=== PATIENT | male | born 1965 | race Caucasian/White ===

== ENCOUNTER → 2020-01-28 | Outpatient (CLI) | payer OTHER ==
[~2020-01-28] MED LIST: ASPIRIN325 PO; ATORVASTATIN CA10 MG PO; ATORVASTATIN CA40 MG PO; AUGMENTIN400 MG/53 PO; COZAAR 25 MG TA25 M1 PO; FIBER0.52 G1 PO; FISH OIL 1,0001 EAC8 PO; HYDROCODON-ACE1 EAC5 PO; IBUPROFEN 600600 M1 PO; LOPRESSOR25 PO; LUNESTA2 MG PO; NEURONTIN 300300 M1 PO; OXYCODONE HCL 55 MG PO; OXYCODONE HCL15 MG PO; SIMVASTATIN80 MG PO; TRAMADOL 50 MG50 MG PO
== END ==
LOC: SJCVCIMAG 01-18 14:01
PROVIDERS: ATTEND Internal Medicine
DX: I65.23 Occlusion and stenosis of bilateral carotid arteries (principal)